=== PATIENT | female | born 1950 | race Caucasian/White ===

== ENCOUNTER 2019-01-24 09:38 | Emergency (ER) | payer OTHER ==
[~2019-01-24] VITALS: Ht 165.1 cm; Wt 75.3 kg
[~2019-01-24 09:38] MED LIST: COUMADIN1 MG; COUMADIN6 MG; GLUMETZA1000 MG; TOPROL XL100 M1; VASOTEC2.5 MG
[2019-01-24] MEDS ORDERED: GLIMEPIRIDE1 MG (10:03)
[2019-01-24] MEDS ORDERED: COUMADIN5 MG PO (10:03)
[2019-01-24] MEDS ORDERED: GLIMEPIRIDE2 MG PO (10:05)
[2019-01-24] MEDS ORDERED: ANASTROZOLE1 MG PO (10:06)
== END 2019-01-24 14:11 | disposition home or self-care (01) ==
LOC: ER 09:38
DX: S20.211A Contusion of right front wall of thorax, initial encounter (principal); W18.09XA Striking against other object with subsequent fall, initial encounter; Y93.89 Activity, other specified; Y92.018 Other place in single-family (private) house as the place of occurrence of the external cause; Y99.8 Other external cause status

== ENCOUNTER 2019-08-12 10:05 | Outpatient (CLI) | payer OTHER ==
[~2019-08-12 10:05] MED LIST changes: +ANASTROZOLE1 MG PO; +COUMADIN5 MG PO; +GLIMEPIRIDE1 MG; +GLIMEPIRIDE2 MG PO
== END 2019-08-12 10:08 | disposition home or self-care (01) ==
LOC: SONOGRAMA 10:05
PROVIDERS: ATTEND Pathology Anatomic Pathology & Clinical Pathology
DX: E04.2 Nontoxic multinodular goiter (principal)

== ENCOUNTER 2021-03-29 09:07 | Emergency (ER) | payer OTHER ==
[~2021-03-29] VITALS: Ht 165.1 cm; Wt 77.1 kg
[2021-03-29] MEDS ORDERED: ADULT ASPIRIN81 MG PO (09:34)
[2021-03-29] MEDS ORDERED: NORVASC2.5 M1 (09:35)
== END 2021-03-29 11:15 | disposition home or self-care (01) ==
LOC: ER 09:07
DX: E11.65 Type 2 diabetes mellitus with hyperglycemia (principal); Z79.84 Long term (current) use of oral hypoglycemic drugs

== ENCOUNTER → 2022-04-07 | Outpatient (CLI) | payer OTHER ==
[~2022-04-07] MED LIST changes: +ADULT ASPIRIN81 MG PO; +NORVASC2.5 M1
== END | disposition home or self-care (01) ==
LOC: SONOGRAMA 10:29
PROVIDERS: ATTEND Pathology Anatomic Pathology & Clinical Pathology
DX: D44.0 Neoplasm of uncertain behavior of thyroid gland (principal); D34 Benign neoplasm of thyroid gland; E04.9 Nontoxic goiter, unspecified; E07.9 Disorder of thyroid, unspecified; E04.1 Nontoxic single thyroid nodule

== ENCOUNTER 2024-08-31 07:55 | Emergency (ER) | payer OTHER ==
[~2024-08-31] VITALS: Ht 157.5 cm; Wt 76.7 kg
[2024-08-31] MEDS ORDERED: COZAAR50 MG (09:34)
[2024-08-31] MEDS ORDERED: JANTOVEN1 MG PO (09:36)
[2024-08-31] MEDS ORDERED: GLIPIZIDE XL2.5 MG (09:36)
[2024-08-31 11:24] LABS: BASO % 0.2 % (0.1-1.2); EOS # 0.10 (0.04-0.54); EOS % 1.7 % (0.7-7.0); LYMPH # 1.24 (1.18-3.74); LYMPH % 21.2 % (19.3-53.1); MEAN PLATELET VOLUME 10.20 fl (9.4-12.4); MONO # 0.64 (0.24-0.82); MONO % 11.0 % (4.7-12.5); NEUT # 3.84 (1.56-6.13); NEUT % 65.7 % (34.0-71.1); RED CELL DISTRIBUTION WIDTH 13.6 % (11.6-14.4)
[2024-08-31 11:26] LABS: URINE APPEARANCE Clear; URINE BILIRRUBIN Negative (NEGATIVE); URINE BLOOD Negative; URINE COLOR Yellow; URINE GLUCOSE Negative (NEGATIVE); URINE KETONE Negative (NEGATIVE); URINE LEUKOCYTE Negative; URINE NITRATE Negative; URINE PROTEIN Negative (NEGATIVE); URINE UROBILINOGEN 0.2 E.U./dl
[2024-08-31 11:31] LABS: URINE BACTERIA 8.4 uL (0.0-1933); URINE RBC 2.6 uL (0.0-20.8); URINE WBC 20.9 uL (0.0-23.2)
[2024-08-31 11:51] LABS: URINE CAST 0.00 uL (0.0-1.40); URINE EPITHELIAL CELLS 1.3 uL (0.0-38.8)
[2024-08-31 12:04] LABS: ALT/SGPT 47.0 U/L (12-78); AST/SGOT 31.0 U/L (15-37); BILIRUBIN TOTAL 0.45 mg/dL (0.3-1.2); BUN CREA RATIO 28.0 (7.0-25.0); CREATININE SERUM 0.6 mg/dL (0.55-1.02); GFR 97.99; GLOBULINA 3.3 G/DL (2.4-3.5); GLUCOSE FASTING 65.0 mg/dL (65-100); OSMOLALITY SERUM 283.0 MOSM/KG (275-295)
[2024-08-31 17:19] VITALS: BP 166/86; O2SAT 98
== END 2024-08-31 17:20 | disposition home or self-care (01) ==
LOC: ER 07:55
PROVIDERS: Emergency Medicine
DX: R42 Dizziness and giddiness (principal); R51.9 Headache, unspecified; R53.1 Weakness; I10 Essential (primary) hypertension; T38.3X5D Adverse effect of insulin and oral hypoglycemic [antidiabetic] drugs, subsequent encounter; E11.9 Type 2 diabetes mellitus without complications; Z88.0 Allergy status to penicillin; Z88.2 Allergy status to sulfonamides; Z91.041 Radiographic dye allergy status